=== PATIENT | female | born 1950 | race Caucasian/White ===

== ENCOUNTER 2018-11-19 05:41 | Inpatient (IN) | payer OTHER, BC ==
[2018-11-19] MEDS ORDERED: GABAPENTIN 300 MG CAP PO ONE (05:51)
[2018-11-19] MEDS ORDERED: ACETAMINOPHEN 500 MG TAB PO ONE (05:51)
[2018-11-19] MEDS ORDERED: morphINE SR 15 MG TAB PO ONE (05:51)
[2018-11-19] MEDS ORDERED: LR 1,000 ML IV ONE (05:53)
--- NOTE | 2018-11-19 06:55 | PDHPUP ---
History & Physical Update H&P update statement: This history and physical update is based on an assessment of the patient which was completed after admission or registration (within 24 hours), but prior to the surgery/procedure. H&P update: H&P reviewed & patient examined, no change in patient's condition since H&P completed
[2018-11-19] MEDS ORDERED: VANCOMYCIN 1.5 GM in D5W 250 ML IV ONE (06:56)
[2018-11-19] MEDS ORDERED: ACETAMINOPHEN 325 MG TAB PO PRN (06:57)
[2018-11-19] MEDS ORDERED: ALBUTEROL 60 PUFFS/8 GM MDI IH PRN (06:57)
[2018-11-19] MEDS ORDERED: CLINDAMYCIN 900 MG/DEXTROSE 50 ML IV ONE (07:00)
[2018-11-19] MEDS ORDERED: GENTAMICIN SULFATE 80 MG/2 ML VIAL ONE (07:03)
[2018-11-19] MEDS ORDERED: BUPIVACAINE/EPI 0.25% 30 ML SDV ONE (07:03)
[2018-11-19] MEDS ORDERED: THROMBIN (BOVINE) 20,000 UNIT VIAL TP ONE (07:03)
[2018-11-19] MEDS ORDERED: BACITRACIN 50,000 UNITS/10 ML SYR IRR ONE (07:03)
[2018-11-19] MEDS ORDERED: CHLORHEXIDINE GLUC HIBICLENS 118 ML BTL TP ONE (07:03)
[2018-11-19] MEDS ORDERED: CITRATE DEXTROSE SOLN 500 ML BAG ONE ×2 (07:05→12:13)
--- NOTE | 2018-11-19 07:05 | PDANEPAE ---
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 ASTHMA EXERCISE INDUCED,COLD WEATHER,ENVIRONMENTAL FRANGRANCES - Neurologic History Hx Cerebrovascular Accident: No Hx Seizures: No Hx Dementia: No - Endocrine History Hx Diabetes: No - Renal History Hx Renal Disorders: No - Liver History Hx Hepatic Disorders: No - Neurological & Psychiatric Hx Hx Neurological and Psychiatric Disorders: No - Cancer History Hx Cancer: Yes Cancer History Comment: SKIN - Congenital Disorder History Hx Congenital Disorders: No - GI History Hx Gastrointestinal Disorders: No - Other Health History Other Health History: 12/2017 LEG ULTRASOUND SHOWED HX OF LT LOWER LEG DVT. ANEMIA. KYPHOSIS - Chronic Pain History Chronic Pain: Yes (THORACIC REGION,RT BREAST NUMBNESS) - Surgical History Prior Surgeries: BILATERAL CATARACT 2015. RESECTION OF THORACIC TUMOR WITH RODS 2012. TUBAL LIGATION. TONSILLECTOMY. RT HAND BENIGN TUMOR REMVL. RT BREAST BX ANE Review of Systems Review of Systems: - Exercise capacity METS (RN): 4 METS ANE Patient History - Allergies Allergies/Adverse Reactions: clarithromycin [From Biaxin] Allergy (Verified 11/09/18 11:48) Hives Penicillins Allergy (Verified 11/19/18 06:41) Swelling/neck,face,throat Sulfa (Sulfonamide Antibiotics) Allergy (Verified 11/09/18 11:48) Hives - Home Medications Home Medications: Acetaminophen [Tylenol 325mg (*)] 325 mg PO Q6 PRN 11/09/18 [Last Taken Unknown] Albuterol [Proventil Inhaler HFA (*)] 1 - 2 puffs IH Q4H PRN 11/09/18 [Last Taken 09/20/18] Herbals/Supplements -Info Only 1 ea PO DAILY 11/09/18 [Last Taken 11/12/18] Tiotropium Inhaler [Spiriva Inhaler] 1 inh IH DAILY 11/09/18 [Last Taken ] Aspirin DAILY 11/10/18 [Last Taken 11/12/18] Budesonide PRN 11/10/18 [Last Taken 11/19/18] Iron DAILY 11/10/18 [Last Taken 11/19/18] ZYRTEC PRN 11/10/18 [Last Taken 11/12/18] - NPO status NPO Since - Liquids (Date): 11/19/18 NPO Since - Liquids (Time): 04:00 NPO Since - Solids (Date): 11/18/18 NPO Since - Solids (Time): 18:30 - Smoking Hx Smoking Status: Former smoker ANE Labs/Vital Signs - Vital Signs Blood Pressure: 163/83 Heart Rate: 80 Respiratory Rate: 16 O2 Sat (%): 91 Height: 172.72 cm Weight: 80.286 kg ANE Physical Exam - Airway Neck exam: FROM Mallampati Score: Class 1 Mouth exam: normal dental/mouth exam - Pulmonary Pulmonary: no respiratory distress, no rales or rhonchi - Cardiovascular Cardiovascular: regular rate and rhythym, no murmur, rub, or gallop - ASA Status ASA Status: III ANE Anesthesia Plan Anesthesia Plan: general endotracheal anesthesia Lines/Monitors: arterial line Total IV Anesthesia: Yes
[2018-11-19] MEDS ORDERED: MIDAZOLAM 2 MG/2 ML VIAL IVP ONE (07:06)
[2018-11-19] MEDS ORDERED: PROPOFOL 200 MG/20 ML VIAL ONE (07:10)
[2018-11-19] MEDS ORDERED: REMIFENTANIL HCL 1 MG VIAL ONE ×4 (07:10→13:13)
[2018-11-19] MEDS ORDERED: LIDOCAINE 2% 100 MG/5 ML SYR ONE (07:10)
[2018-11-19] MEDS ORDERED: DEXAMETHASONE 4 MG/ML VIAL ONE (07:10)
[2018-11-19] MEDS ORDERED: PROPOFOL/EMULSION 500 MG/50 ML BOTTLE IV ONE ×8 (07:13→13:13)
[2018-11-19] MEDS ORDERED: DEXMEDETOMIDINE HCL 400 MCG in NS 100 ML IV ONE (07:30)
[2018-11-19] MEDS ORDERED: VANCOMYCIN 1.25 GM in NS 250 ML IV ONE (07:30)
[2018-11-19] MEDS ORDERED: POLYETHYLENE GLYCOL 3350 17 GM PKT PO PRN (11:51)
[2018-11-19] MEDS ORDERED: BISACODYL 10 MG SUPP PR PRN (11:51)
[2018-11-19] MEDS ORDERED: MAGNESIUM HYDROXIDE 30 ML UDCUP PO PRN (11:51)
[2018-11-19] MEDS ORDERED: LACTULOSE 20 GM/30 ML UDCUP PO PRN (11:51)
[2018-11-19] MEDS ORDERED: diphenhydrAMINE 25 MG CAP PO PRN (11:51)
[2018-11-19] MEDS ORDERED: NS 1,000 ML IV SCH (12:30)
--- NOTE | 2018-11-19 12:50 | POSTOPPROG ---
Post Op Note Date of Operation: 11/19/18 Surgeon: Esvin Peña Patient Coordinator: Osiris Valladares PA-C (Mirabella), Joseluis Morales MD Anesthesia: GET(General Endotracheal) Pre-op Diagnosis: Intradural thoracic meningioma, kyphosis of thoracic spine Post-op Diagnosis: same Procedure: Removal of hardware T3-6, extension of fusion T1-T8, Excision of tumor Inf/Abcess present in the surg proc area at time of surgery?: No Depth: Organ Space Complications: None observed Drains: Other (Lumbar Drain) SOAP Progress Note Assessment/Plan: Assessment: Plan: S: Patient in ICU. Still waking up from surgery. Stable with expected incisional pain. O: NAD, VSS PERRL, EOMI Somnolent but arousable and following commands ROBERTS X 4 BLE 5/5 Incision c/d/i dressed LAN X 1 to thumbprint suction ~50 ccs in bulb Lumbar drain in placed- clamped A: 67 yo female sp removal of hardware T3-T6, extension of fusion T1-T8, resection of intradural tumor. Placement of lumbar drain P: -Admit to ICU -optimize pain control- on precedex overnight to help, very sensitive to pain medications! Have tramadol, scheduled tylenol, oxycodone and robaxin to help -Bedrest overnight, but HOB may be up to 30 degrees -Tomorrow may get out of bed as long as LD is clamped! -Lumbar Drain- Clamped at ALL times except to drain 10ccs and hour at the top of every hour starting at 1600 -PT.OT to start tomorros -Postop MRI in am -Postop xrays when able -SBP goal normotensive -Neuro checks -Lan Drain to thumbprint suction only -DVT: TEDs, SCDs, Lovenox to start in am -Seen by Dr. Morales postop 11/19/18 15:49 Objective: Vital Signs Temp Pulse Resp BP Pulse Ox 37.1 C 80 16 163/83 H 91 L 11/19/18 06:13 11/19/18 07:05 11/19/18 07:05 11/19/18 07:05 11/19/18 07:05
[2018-11-19] MEDS ORDERED: CETIRIZINE 10 MG TAB PO PRN (13:07)
[2018-11-19] MEDS ORDERED: HYDROmorphONE/DILAUDID 2 MG/ML INJ ONE (14:09)
[2018-11-19] MEDS ORDERED: NALOXONE HCL 0.4 MG/ML INJ IVP PRN (14:49)
--- NOTE | 2018-11-19 15:45 | POSTANESTH ---
Post Anesthetic Evaluation Cardiovascular Status: Normal, Stable Respiratory Status: Normal, Stable Level of Consciousness/Mental Status: Can Participate in Eval, Moderately Sleepy Pain Control: Adequate, Prn Tx Ordered Nausea/Vomiting Control: Adequate, Prn Tx Ordered Complications Possibly Related to Anesthesia: None Noted
--- NOTE | 2018-11-19 16:03 | PDMN ---
Medical Necessity Medical necessity: [facility] IP only surgery; cpt 81757 Removal of T3-6 Hardware, Extension of T1-8 Fusion, Excision of Tumor
[2018-11-19] MEDS: ONDANSETRON 4 MG/2 ML VIAL IVP PRN ×2 (16:19→19:16)
[2018-11-19] MEDS: ACETAMINOPHEN 500 MG TAB PO SCH ×2 (18:20→22:33)
[2018-11-19] MEDS: METHOCARBAMOL 750 MG TAB PO PRN ×2 (18:20→23:33)
--- NOTE | 2018-11-19 18:39 | GOP ---
[f rep st] OPERATIVE REPORT DATE OF OPERATION: 11/19/2018 SURGEON: Esvin Peña MD WAREHOUSEMAN: 1. Severo Morales MD. 2. Osiris Valladares PA-C (Mirabella). ANESTHESIA: General endotracheal. 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 POSTOPERATIVE DIAGNOSIS: Recurrent dural-based extramedullary tumor. PROCEDURE PERFORMED: 1. Exploration of spinal fusion. 2. Removal of existing spinal hardware, T3-T6. 3. Placement of pedicle screw fixation, T1-T8. 4. Posterolateral spinal fusion T1-T8. 5. Use of O-arm/Stealth stereotactic navigation for screw placement. 6. Redo resection of dural-based extramedullary tumor with resection of dura. 7. Bovine pericardium duraplasty. 8. Use of the operative microscope. 9. [place] of local autograft. 10. Use of allograft cancellous bone chips. 11. Intraoperative neurophysiologic monitoring, including somatosensory-evoked potentials and motor-evoked potentials. 12. Placement of lumbar drain. 13. Complex dural repair using bovine pericardium allograft FINDINGS: A successful tumor resection and successful spinal fusion T1-T8. SPECIMENS: Right thoracic dural-based tumor for permanent pathology. ESTIMATED BLOOD LOSS: 300 mL. DESCRIPTION OF PROCEDURE: After informed consent was obtained from the patient , the patient was brought to the operating room and a formal time-out was performed, identifying the patient by name, medical record number, and date of . Preoperative antibiotics were given. The endotracheal tube was placed and general endotracheal anesthesia was smoothly induced. The patient was turned to the prone position on the Kishan table and all appropriate pressure points were padded and checked. All appropriate leads were placed for intraoperative neurophysiologic monitoring and baseline potentials were obtained , which were normal. Her previous incision was then marked and the thoracic region was prepped and draped in the normal sterile fashion. The skin incision was opened using a 10 blade, and the subcutaneous tissues were dissected using monopolar electrocautery. The inferior spinous processes of T7 and T8 were identified and the paraspinous muscles were taken down laterally. This allowed us to expose the old hardware, which was exposed widely laterally to the transverse processes. We carried this up cephalad where she had developed some kyphosis, exposing the lamina and transverse processes of T1 and T2. Once this exposure was obtained, the old Globus hardware was removed and the screw sizes were recorded. Once all this hardware was removed, the stereotactic frame was placed on the spinous process of T7 and a stereotactic spin was obtained showing the relevant anatomy from T1-T8. This allowed us to localize the pedicle entry points at T1, T2, T7 and T8, which were the virgin levels. These entry points were then decorticated using the high-speed drill and the pedicles were then tapped using navigation using a 4 mm Medtronic tap. The pedicle trajectories were slightly changed at T3, T4, T5 and T6 as well, and the screws were deepened into the vertebral body. Once all of these holes were obtained, the 5.5 mm Medtronic Solera system was used to place pedicle screws at each level in the following manner. At T1, 5.5 x 30 mm screws were placed bilaterally. At T2, 5.5 x 35 mm screw was placed on the left, and a 5.5 x 30 mm screw was placed on the right. At T3, 5.5 x 35 mm screws were placed bilaterally. At T4, a 5.5 x 40 mm screw was placed on the left and no screw was placed on the right. At T5, 5.5 x 35 mm screw was placed on the left and no screw was placed on the right. The 2 pedicles at T4 and T5 were then later removed for the transpedicular approach for the tumor removal. At T6, 5.5 x 45 mm screws were placed bilaterally. At T7, a 5.0 x 45 mm screw was placed on the left and a 5 x 40 mm screw was placed on the right. At T8, 5.5 x 40 mm screws were placed bilaterally. Once all the screws were placed, the somatosensory and motor-evoked potentials remained completely stable. At this point, the lamina of T8 was carefully identified and there was a lot of scar tissue over the dura. The high-speed drill was used to drill a laminectomy at T8, exposing the dural edge. This was then used under the high-power magnification of the operative microscope to carefully dissect the scar tissue away from the dura going cephalad. In the area of the T4 and T5 pedicles on the right, the tumor was seen extending through the dura and somewhat into the foramen. These foramen were unroofed using the high-speed drill, and the pedicles of T4 and T5 were completely removed using the high-speed drill for transpedicular approach. The nerve roots had already been sacrificed it appeared in the foramen at T4-5 and T5-6. Some tumor was resected from this area. Once we had a good dural exposure, the dura was then opened just to the left of the area where the tumor was located in a longitudinal fashion, and dural tack-up stitches were placed. The arachnoid was carefully dissected away from the edge of the tumor into the magnification of the microscope, and the tumor was luckily not involving the spinal cord at all, however, it was deviating toward the left. The tumor was extending through the dura and was extremely calcified. A large calcified portion of the tumor was able to be removed en bloc and the softer, more ventral portion of the tumor was carefully removed using suction and bipolar electrocautery. Unfortunately because of the extent of the tumor extending to the dura, the nerve root at T5 was then sacrificed intradurally and the dura on the right side of the canal had to be completely resected with the tumor. As we coursed ventrally, we were able to identify the dural edge, and there was likely still a small amount of tumor ventral to the spinal cord which could not be visualized. However, it was well decompressed. At this point, the edges were inspected and it did not appear that we could resect any further tumor, but the cord was extremely well decompressed and we could not remove any further dura and still get a reasonable repair. The wound was copiously irrigated using sterile saline. I then fashioned a patch graft with bovine pericardium and this was carefully sutured to the ventral dura from within the intradural space. A running 6-0 Prolene suture was used to secure this ventrally. The sutures then run up the sides of the dura allowing us to then close the remaining dura in a watertight fashion in the midline. This allowed for a relatively wide duraplasty. No leakage of CSF was visualized at this point, and we appeared to have a good dural repair. Due to the scarring and extensive dural involvement of the tumor , the tumor resection and dural repair was quite tedious and took about twice as long as would be expected. At this point, the wound was copiously irrigated using bacitracin irrigation. We then fashioned a 5.5 mm cobalt chromium rods with some kyphosis, but enough that we could straighten out her spine to a reasonable degree. These were cut to length and then placed into the screw heads with some reduction of the kyphosis, secured in place using the locking caps. We appeared to have good reduction here. A second O-arm spin was obtained showing the screws all in good placement. The hardware all appeared to be well intact. At this point, the transverse processes and lamina were completely decorticated using the high-speed drill. Cancellous bone chips and Progenix Plus demineralized bone matrix were then used for posterolateral fusion after it was mixed with the locally-harvested autograft from the laminectomy and the fused spinous processes which were still existing. The motor-evoked and somatosensory-evoked potentials remained completely stable at this point. After posterolateral fusion was performed, the wound was copiously irrigated using bacitracin irrigation. A small layer of DuraSeal was placed over the dural repair to avoid any postoperative CSF leak. All bleeding was controlled using bipolar electrocautery. The fascia was then closed in a watertight fashion over the drain. Again, the wound was copiously irrigated using bacitracin irrigation. The deep dermis was closed using interrupted 2-0 Vicryl. The skin was closed using a running 3-0 nylon. After sterile dressings were placed, a 14-gauge Touhy needle was then used to place a lumbar drain at the L3-L4 interspace using palpable landmarks. Good CSF flow was obtained and the drain was easily passed. It was patent at the time of closure , and this drain was sterilely dressed as well. The patient then awakened in the operating room where she was extubated and transferred to the PACU in stable condition. All sponge and needle counts were correct at the end of the case. BRIEF CLINICAL HISTORY: Megan Gonzalez is a 67-year-old woman who has had a history of a previous resection of a primarily right-sided dural-based mass 4 or 5 years ago. Apparently, the pathology from this returned as meningioma, but her operating physician told her that they felt that this was a schwannoma. She has been followed somewhat since that time, and at the time of surgery, underwent a T3-T6 instrumented fusion. But in her followup, she was found to have tumor recurrence and some growth. There was displacement of the cord toward the left side, although she was not symptomatic with overt cord compression. This case was presented at our Multidisciplinary Tumor Board Conference, and ultimately it was decided that she should undergo redo resection to establish the final pathology and decompress the spinal cord. She presents electively today for this procedure. FLUIDS AND URINE OUTPUT: Put the anesthesia record. All neurophysiologic monitoring remained stable throughout the case without change. DRAINS: Subfascial MELANY and an intradural lumbar subarachnoid drain. COMPLICATIONS: None. /[id number]/MODL MTDD
[2018-11-19] MEDS: oxyCODONE IR 5 MG TAB PO PRN ×2 (19:15→23:33)
[2018-11-19] MEDS ORDERED: VANCOMYCIN 750 MG in D5W 150 ML IV ONE (19:30)
[2018-11-19] MEDS: FAMOTIDINE 20 MG TAB PO SCH (22:33)
[2018-11-19] MEDS: SENNOSIDES/DOCUSATE SODIUM TAB PO SCH (22:33)
[2018-11-19] MEDS: DEXMEDETOMIDINE HCL 400 MCG in NS 100 ML IV SCH (23:35)
[2018-11-20] MEDS: ACETAMINOPHEN 500 MG TAB PO SCH ×3 (06:14→22:09)
[2018-11-20] MEDS: METHOCARBAMOL 750 MG TAB PO PRN ×3 (06:16→16:27)
--- NOTE | 2018-11-20 07:18 | PDCONSULT ---
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
[2018-11-20] MEDS: SENNOSIDES/DOCUSATE SODIUM TAB PO SCH ×2 (08:29→22:10)
[2018-11-20] MEDS: FAMOTIDINE 20 MG TAB PO SCH ×2 (08:29→22:10)
[2018-11-20] MEDS: oxyCODONE IR 5 MG TAB PO PRN ×2 (08:29→16:27)
[2018-11-20] MEDS: CHOLECALCIFEROL VIT D3 1,000 UNITS TAB PO SCH (08:29)
[2018-11-20] MEDS: MULTIVITAMINS 1 EACH TAB PO SCH (08:30)
[2018-11-20] MEDS: FERROUS SULFATE 325 MG TAB PO SCH (08:30)
[2018-11-20] MEDS: ENOXAPARIN 40 MG/0.4 ML SYR SC SCH (08:30)
[2018-11-20] MEDS: TIOTROPIUM INHALER 18 MCG/DOSE 5 DOSE/MDI IH SCH (09:12)
[2018-11-20] MEDS ORDERED: NS 1,000 ML IV ONE (09:30)
[2018-11-20] MEDS: traMADol 50 MG TAB PO PRN (11:57)
--- NOTE | 2018-11-20 13:52 | ASMTCASEMG ---
Living Arrangements What is your living Answers: With Spouse arrangement? Who do you live with? Type Of Residence What kind of residence do Answers: House you live in? Discharge Plan Comments Coordination Status Comments Notes: Patient is a 67yo female who presents for surgery due to a reoccurrence of a tumor. Patient going to surgery today for redo resection of intradural thoracic tumor, extension of fusion T1-T8. PT/OT evals ordered for the patient. D/C plan TBD. CM will follow. Date Signed: 11/20/2018 01:51 PM Electronically Signed By:Myrna Jay LCSW
[2018-11-20] MEDS: ONDANSETRON 4 MG/2 ML VIAL IVP PRN (16:27)
[2018-11-21] MEDS: METHOCARBAMOL 750 MG TAB PO PRN ×4 (00:20→18:21)
[2018-11-21] MEDS: DEXMEDETOMIDINE HCL 400 MCG in NS 100 ML IV SCH ×2 (00:43→17:01)
[2018-11-21] MEDS: oxyCODONE IR 5 MG TAB PO PRN ×3 (03:19→18:21)
[2018-11-21] MEDS: ACETAMINOPHEN 500 MG TAB PO SCH ×3 (05:31→21:04)
[2018-11-21] MEDS: TIOTROPIUM INHALER 18 MCG/DOSE 5 DOSE/MDI IH SCH (08:49)
[2018-11-21] MEDS: MULTIVITAMINS 1 EACH TAB PO SCH (09:52)
[2018-11-21] MEDS: ENOXAPARIN 40 MG/0.4 ML SYR SC SCH (09:52)
[2018-11-21] MEDS: FAMOTIDINE 20 MG TAB PO SCH ×2 (09:52→20:04)
[2018-11-21] MEDS: SENNOSIDES/DOCUSATE SODIUM TAB PO SCH ×2 (09:52→20:04)
[2018-11-21] MEDS: FERROUS SULFATE 325 MG TAB PO SCH (09:52)
[2018-11-21] MEDS: CHOLECALCIFEROL VIT D3 1,000 UNITS TAB PO SCH (09:52)
--- NOTE | 2018-11-21 10:31 | PDCONSULT ---
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: NEUROSURGERY STAFF no new events, pain worse today, precedex weaned off but now recently restarted AAOx3 Strength full 5/5 at HF, KF/E, PF/DF sensation normal dressings c/d/i left index finger now with normal cap refill, warm (had been showing signs of ischemia after a-line removal) POD#2 s/p redo resection of thoracic meningioma, extensive dural repair, T1-8 instrumented fusion - doing well - continue drain 10cc/hr from lumbar drain (likely clamp on Friday) - ambulate - pain control, she is very sensitive to narcotics - thoracic xrays when able - PT/OT - lovenox for DVT ppx - will hold off on MRI imaging for now, can get as outpatient Casey
[2018-11-21] MEDS: ONDANSETRON DISINTEGRATING 4 MG TAB PO PRN (20:04)
[2018-11-22] MEDS: oxyCODONE IR 5 MG TAB PO PRN ×2 (00:16→08:25)
[2018-11-22] MEDS: METHOCARBAMOL 750 MG TAB PO PRN ×3 (00:16→22:44)
[2018-11-22] MEDS: ACETAMINOPHEN 500 MG TAB PO SCH ×3 (05:54→22:44)
--- NOTE | 2018-11-22 08:05 | NEUSURGPN ---
Assessment/Plan: Assessment: Plan: S: Patient in ICU. Still waking up from surgery. Stable with expected incisional pain. O: AAOx3 Strength full 5/5 at HF, KF/E, PF/DF sensation normal dressings c/d/i left index finger now with normal cap refill, warm (had been showing signs of ischemia after a-line removal) MELANY X 1- serosang in bulb ~10ccs Lumbar drain in placed- clamped A: 67 yo female sp removal of hardware T3-T6, extension of fusion T1-T8, resection of intradural tumor. Placement of lumbar drain P: POD#3 s/p redo resection of thoracic meningioma, extensive dural repair, T1-8 instrumented fusion - doing well overall. Still trying to get to an oral only pain control regimen. Spoke with patient about taking orals first and then only if needed we have IV available. Still on a tiny bit of Precedex as well. - continue drain 10cc/hr from lumbar drain- will clamp tomorrow and if wound remains dry will remove on Friday. Will need lovenox held prior to drain removal - ambulate - pain control, she is very sensitive to narcotics - thoracic xrays when able - PT/OT - lovenox for DVT ppx - will hold off on MRI imaging for now, can get as outpatient -Can remove MELANY drain today -Discussed with Dr. Peña Catheter Insertion Date: 11/19/18 - Physician Discussed Patient with Dr.: Peña Neurosurgery Physical Exam - Vitals, I&O, Labs I and O 11/21/18 11/22/18 11/23/18 05:59 05:59 05:59 Intake Total 5505 2825 Output Total 1590 2502 10 Balance 3915 323 -10 Intake: Oral (ml) 2200 1650 IV Intake (ml) 1052 IV Infused (ml) 3305 123 Dexmedetomidine HCl 400 14 mcg In Ns 100 ml @ Per Protocol IV ONCALL ONE Rx #:[id number] Dexmedetomidine HCl 400 88 123 mcg In Ns 100 ml @ Titrate IV CONT MARYURI Rx#: [id number] Ns 1,000 ml @ 100 mls/hr 3203 IV CONT MARYURI Rx#: [id number] Output: Urine (ml) 970 2050 Bedside Commode 650 1450 Catheter 120 Incontinence 200 600 CSF Drainage Amount 230 232 10 Lumbar Drain 230 232 10 MELANY Drain Output (ml) 390 220 #1 Back Kishan Sofia 390 220 Other: Intake Quantity Yes Yes Sufficient Number of Voids Bedside Commode 3 1 Incontinence 1 Number of Stools Bedside Commode 0 Vital Signs Temp Pulse Resp BP Pulse Ox 36.9 C 60 20 123/52 H 97 11/22/18 04:00 11/22/18 07:00 11/22/18 07:00 11/22/18 07:00 11/22/18 07:00 Laboratory Results 11/19/18 16:30 ICD10 Worksheet Patient Problems: Problems Problem Status Onset Benign tumor of spinal meningioma Acute - ICD10 Problem Qualifiers (1) Benign tumor of spinal meningioma
[2018-11-22] MEDS: ENOXAPARIN 40 MG/0.4 ML SYR SC SCH (08:27)
[2018-11-22] MEDS: MULTIVITAMINS 1 EACH TAB PO SCH (08:27)
[2018-11-22] MEDS: SENNOSIDES/DOCUSATE SODIUM TAB PO SCH ×2 (08:27→20:45)
[2018-11-22] MEDS: FERROUS SULFATE 325 MG TAB PO SCH (08:27)
[2018-11-22] MEDS: FAMOTIDINE 20 MG TAB PO SCH ×2 (08:27→20:45)
[2018-11-22] MEDS: CHOLECALCIFEROL VIT D3 1,000 UNITS TAB PO SCH (08:27)
[2018-11-22] MEDS: ONDANSETRON 4 MG/2 ML VIAL IVP PRN ×2 (11:18→17:12)
[2018-11-22] MEDS: TIOTROPIUM INHALER 18 MCG/DOSE 5 DOSE/MDI IH SCH (11:23)
[2018-11-22] MEDS: traMADol 50 MG TAB PO PRN (12:47)
[2018-11-22] MEDS: DEXMEDETOMIDINE HCL 400 MCG in NS 100 ML IV SCH (14:01)
--- NOTE | 2018-11-22 14:05 | ASMTCMCOM ---
CM Note CM Note Notes: Pt had spinal tumor resection and fusion on 11/19/18 and has worked with therapies who are recommending [facility]. Surgeon will need to place order for [facility] eval. CM left message for [facility] intake. CM to follow. D/C plan: [facility] pending eval Date Signed: 11/22/2018 02:04 PM Electronically Signed By:Aislinn Rodriguez
[2018-11-22] MEDS ORDERED: PROMETHAZINE HCL 25 MG/ML INJ IVP PRN (18:37)
[2018-11-22] MEDS: PROMETHAZINE HCL 25 MG/ML INJ IVP PRN (20:41)
[2018-11-23] MEDS: ACETAMINOPHEN 500 MG TAB PO SCH ×3 (02:14→22:43)
[2018-11-23] MEDS: oxyCODONE IR 5 MG TAB PO PRN ×3 (05:05→22:43)
[2018-11-23] MEDS: DEXMEDETOMIDINE HCL 400 MCG in NS 100 ML IV SCH ×2 (06:42→23:15)
--- NOTE | 2018-11-23 07:32 | NEUSURGPN ---
Assessment/Plan: Assessment: Plan: S: Had a lot of nausea yesterday with 1 episode of vomiting. Improved this morning with phenergan. Pain control ok on oral medications. O: AAOx3 Strength full 5/5 at HF, KF/E, PF/DF sensation normal dressings c/d/i left index finger now with normal cap refill, warm (had been showing signs of ischemia after a-line removal) MELANY removed Incision c/d/i Lumbar drain in placed- clamped A: 67 yo female POD#4 sp removal of hardware T3-T6, extension of fusion T1-T8, resection of intradural tumor. Placement of lumbar drain P: - doing well overall.Still trying to get pain and nausea under control. -Clamp lumbar Drain today -Ok to ambulate without tele monitors in place - Hold lovenox after this mornings dose in anticipation of lumbar drain pull tomorrow - ambulate - pain control, she is very sensitive to narcotics - thoracic xrays when able - PT/OT -No BM yet- Miralax today - lovenox for DVT ppx- can have this morning, hold tomorrow's dose -Redress incision and monitor for any signs of CSF leak - will hold off on MRI imaging for now, can get as outpatient -Discussed with Dr. Peña Catheter Insertion Date: 11/19/18 - Physician Discussed Patient with : Casey Patient Seen by : Casey Neurosurgery Physical Exam - Vitals, I&O, Labs I and O 11/22/18 11/23/18 11/24/18 05:59 05:59 05:59 Intake Total 2825 3181.4 Output Total 2502 2050 20 Balance 323 1131.4 -20 Intake: Oral (ml) 1650 2500 IV Intake (ml) 1052 443 IV Infused (ml) 123 238.4 Dexmedetomidine HCl 400 123 238.4 mcg In Ns 100 ml @ Titrate IV CONT MARYURI Rx#: [id number] Output: Urine (ml) 2050 1800 Bedside Commode 1450 1200 Incontinence 600 600 CSF Drainage Amount 232 220 20 Lumbar Drain 232 220 20 MELANY Drain Output (ml) 220 30 #1 Back Kishan Sofia 220 30 Other: Intake Quantity Yes Yes Sufficient Output Comment Incontinence external female cath Number of Voids Bedside Commode 1 3 Incontinence 1 1 Number of Stools Bedside Commode 0 Number of Emesis 1 Occurrences Vital Signs Temp Pulse Resp BP Pulse Ox 37.0 C 60 7 L 123/51 H 100 11/23/18 02:00 11/23/18 07:00 11/23/18 07:00 11/23/18 07:00 11/23/18 07:00 Laboratory Results 11/19/18 16:30 ICD10 Worksheet Patient Problems: Problems Problem Status Onset Benign tumor of spinal meningioma Acute - ICD10 Problem Qualifiers (1) Benign tumor of spinal meningioma
[2018-11-23] MEDS: METHOCARBAMOL 750 MG TAB PO PRN ×2 (08:50→12:58)
[2018-11-23] MEDS: ENOXAPARIN 40 MG/0.4 ML SYR SC SCH (08:51)
[2018-11-23] MEDS: SENNOSIDES/DOCUSATE SODIUM TAB PO SCH ×2 (09:41→20:44)
[2018-11-23] MEDS: CHOLECALCIFEROL VIT D3 1,000 UNITS TAB PO SCH (09:43)
[2018-11-23] MEDS: FAMOTIDINE 20 MG TAB PO SCH ×2 (09:43→20:44)
[2018-11-23] MEDS: FERROUS SULFATE 325 MG TAB PO SCH (09:44)
[2018-11-23] MEDS: MULTIVITAMINS 1 EACH TAB PO SCH (09:44)
[2018-11-23] MEDS ORDERED: ALBUMIN 5% 500 ML IV ONE (10:39)
[2018-11-23] MEDS ORDERED: NS W/ 20 KCl/L 1,000 ML IV SCH (10:45)
[2018-11-23] MEDS: TIOTROPIUM INHALER 18 MCG/DOSE 5 DOSE/MDI IH SCH (10:57)
--- NOTE | 2018-11-23 12:00 | ASMTCMCOM ---
CM Note CM Note Notes: Spoke with pt and who are interested in [facility] inpt rehab. CM spoke with [facility] Inpt rehab who are willing to accept pt if she is ready in the next few day. Pt and her are very interested in keeping pt here at [facility] and don't want to consider other options at this time. CM to follow. Plan: [facility] Inpatient Rehab Once medically ready. Date Signed: 11/23/2018 11:59 AM Electronically Signed By:ELIZABETH Gao
[2018-11-23 12:29] LABS: PLATELET COUNT 179 10^3/uL (150-400)
[2018-11-23] MEDS ORDERED: METHYLNALTREXONE BROMIDE 12 MG/0.6 ML INJ SC ONE (18:45)
[2018-11-23] MEDS: ONDANSETRON 4 MG/2 ML VIAL IVP PRN (19:04)
[2018-11-23] MEDS: METOCLOPRAMIDE 10 MG/2 ML VIAL IVP PRN (19:04)
[2018-11-23] MEDS: PROMETHAZINE HCL 25 MG/ML INJ IVP PRN (22:42)
[2018-11-24] MEDS: METOCLOPRAMIDE 10 MG/2 ML VIAL IVP PRN (04:34)
[2018-11-24] MEDS: METHOCARBAMOL 750 MG TAB PO PRN ×2 (04:34→11:42)
[2018-11-24] MEDS: ACETAMINOPHEN 500 MG TAB PO SCH ×3 (06:00→21:54)
--- NOTE | 2018-11-24 07:40 | NEUSURGPN ---
Date of Surgery: 11/19/18 Post Op Day: 5 Assessment/Plan: Assessment: 67 yo female POD#5 sp removal of hardware T3-T6, extension of fusion T1-T8, resection of intradural tumor. Placement of lumbar drain Plan: - doing well overall.Still trying to get pain and nausea under control. -Lumbar drain removed, tip intact. Nylon suture in place, no drainage noted. Will keep flat x1 hour (0830), then ok to ambulate. -May restart Lovenox - pain control, she is very sensitive to narcotics - thoracic xrays today - PT/OT -No BM yet-continue bowel protocol -Redress incision, will continue to monitor - will hold off on MRI imaging for now, can get as outpatient Patient was seen by Dr Peña and Dr Morales as well this am Subjective: resting in bed, no new complaints Objective: AxOx4 MAEx4 5/5 BUE, BLE Sensation intact to light touch BLE Dressing/Incision CDI Lumbar drain site with suture x1-no drainage Neuro Check Frequency: per routine Urinary Catheter in Place: No Catheter Insertion Date: 11/19/18 - Physician Patient Seen by Dr.: Peña (Also seen by Dr Morales) Neurosurgery Physical Exam - Vitals, I&O, Labs I and O 11/23/18 11/24/18 11/25/18 05:59 05:59 05:59 Intake Total 3181.4 3179.8 Output Total 2050 1320 Balance 1131.4 1859.8 Intake: Oral (ml) 2500 1725 IV Intake (ml) 443 IV Infused (ml) 238.4 1454.8 Albumin 5% 500 ml @ As 500 Directed IV ONCE ONE Rx#: [id number] Dexmedetomidine HCl 400 238.4 93.8 mcg In Ns 100 ml @ Titrate IV CONT MARYURI Rx#: [id number] NS W/ 20 KCl/L 1,000 ml @ 861 100 mls/hr IV CONT MARYURI Rx#:[id number] Output: Urine (ml) 1800 1150 Bedside Commode 1200 1150 Incontinence 600 Emesis (ml) 150 CSF Drainage Amount 220 20 Lumbar Drain 220 20 MELANY Drain Output (ml) 30 #1 Back Kishan Sofia 30 Other: Intake Quantity Yes Yes Sufficient Output Comment Incontinence external female cath Number of Voids Bedside Commode 3 1 Incontinence 1 Number of Stools Bedside Commode 1 Number of Emesis 1 Occurrences Vital Signs Temp Pulse Resp BP Pulse Ox 37.4 C 61 14 136/57 H 99 11/23/18 20:00 11/24/18 06:00 11/24/18 06:00 11/24/18 06:00 11/24/18 06:00 Laboratory Results 11/23/18 12:18 11/23/18 12:18 ICD10 Worksheet Patient Problems: Problems Problem Status Onset Benign tumor of spinal meningioma Acute
[2018-11-24] MEDS: FAMOTIDINE 20 MG TAB PO SCH ×2 (09:57→20:26)
[2018-11-24] MEDS: SENNOSIDES/DOCUSATE SODIUM TAB PO SCH ×2 (09:57→20:26)
[2018-11-24] MEDS: MULTIVITAMINS 1 EACH TAB PO SCH (09:58)
[2018-11-24] MEDS: FERROUS SULFATE 325 MG TAB PO SCH (09:58)
[2018-11-24] MEDS: CHOLECALCIFEROL VIT D3 1,000 UNITS TAB PO SCH (09:58)
[2018-11-24] MEDS: traMADol 50 MG TAB PO PRN ×2 (10:18→18:29)
[2018-11-24] MEDS: TIOTROPIUM INHALER 18 MCG/DOSE 5 DOSE/MDI IH SCH (11:19)
[2018-11-24] MEDS: hydrALAZINE 20 MG/ML VIAL IVP PRN (11:41)
[2018-11-24] MEDS: ONDANSETRON 4 MG/2 ML VIAL IVP PRN (15:00)
[2018-11-24] MEDS: ONDANSETRON DISINTEGRATING 4 MG TAB PO PRN (21:54)
[2018-11-25] MEDS: traMADol 50 MG TAB PO PRN ×2 (01:59→08:25)
[2018-11-25] MEDS: ACETAMINOPHEN 500 MG TAB PO SCH ×3 (05:39→21:44)
[2018-11-25] MEDS: hydrALAZINE 20 MG/ML VIAL IVP PRN (06:43)
--- NOTE | 2018-11-25 07:45 | NEUSURGPN ---
Date of Surgery: 11/19/18 Post Op Day: 6 Assessment/Plan: Assessment: 67 yo female POD #6 s/p removal of hardware T3-T6, extension of fusion T1-T8, resection of intradural tumor. Placement of lumbar drain Plan: -doing well overall. Still trying to get pain and nausea under control-better today -Lumbar drain removed yesterday -ok for Lovenox -pain control, she is very sensitive to narcotics-on tramadol -thoracic xrays pending today -PT/OT-CPM -No BM yet-continue bowel protocol-passing gas -CDI -d/w Dr Peña -call with any questions or concerns Subjective: Awake and alert. NAD. Eating/drinking and voiding. No f/c/n/v/d. Objective: AAO x 4 ROBERTS x 4 5/5 BUE, BLE = Sensation intact to light touch BLE Dressing/Incision CDI Lumbar drain site with suture x1-no drainage Neuro Check Frequency: per routine Urinary Catheter in Place: No Catheter Insertion Date: 11/19/18 - Physician Discussed Patient with Dr.: Peña Neurosurgery Physical Exam - Vitals, I&O, Labs I and O 11/24/18 11/25/18 11/26/18 05:59 05:59 05:59 Intake Total 3179.8 800 Output Total 1320 3300 Balance 1859.8 -2500 Intake: Oral (ml) 1725 800 IV Infused (ml) 1454.8 Albumin 5% 500 ml @ As 500 Directed IV ONCE ONE Rx#: [id number] Dexmedetomidine HCl 400 93.8 mcg In Ns 100 ml @ Titrate IV CONT MARYURI Rx#: [id number] NS W/ 20 KCl/L 1,000 ml @ 861 100 mls/hr IV CONT MARYURI Rx#:[id number] Output: Urine (ml) 1150 3300 Bedside Commode 1150 3300 Emesis (ml) 150 CSF Drainage Amount 20 Lumbar Drain 20 Other: Intake Quantity Yes Sufficient Number of Voids Bedside Commode 1 1 Number of Stools Bedside Commode 1 Number of Emesis 3 Occurrences Vital Signs Temp Pulse Resp BP Pulse Ox 36.8 C 81 16 175/81 H 95 11/25/18 00:00 11/25/18 00:00 11/25/18 00:00 11/25/18 06:45 05/15/19 00:00 Laboratory Results 11/23/18 12:18 11/23/18 12:18 ICD10 Worksheet Patient Problems: Problems Problem Status Onset Benign tumor of spinal meningioma Acute
[2018-11-25] MEDS ORDERED: SCOPOLAMINE HYDROBROMIDE 1 MG/3 DAYS PATCH TD SCH (08:00)
[2018-11-25] MEDS: SENNOSIDES/DOCUSATE SODIUM TAB PO SCH ×2 (08:13→20:35)
[2018-11-25] MEDS: FAMOTIDINE 20 MG TAB PO SCH ×2 (08:25→20:36)
[2018-11-25] MEDS: CHOLECALCIFEROL VIT D3 1,000 UNITS TAB PO SCH (08:25)
[2018-11-25] MEDS: FERROUS SULFATE 325 MG TAB PO SCH (08:25)
[2018-11-25] MEDS: MULTIVITAMINS 1 EACH TAB PO SCH (08:25)
[2018-11-25] MEDS: TIOTROPIUM INHALER 18 MCG/DOSE 5 DOSE/MDI IH SCH (08:33)
--- NOTE | 2018-11-25 14:52 | ASMTCMCOM ---
CM Note CM Note Notes: Pt no longer meets criteria for [facility] inpatient rehab. Pt and [place] are not disapointed, they are very encouraged by pt progress and feel safe with d/c home with [facility]. [facility] can accept pt for PT/OT. Pt will d/c to her home, address/phone verified. Pt has a lot of family support. D/c plan of care: Home with [facility] OT/PT Date Signed: 11/25/2018 02:51 PM Electronically Signed By:KRISTOPHER Lyon
[2018-11-25] MEDS ORDERED: DILTIAZEM 25 MG/5 ML VIAL IVP ONE (17:55)
[2018-11-25] MEDS ORDERED: PROTOCOL POTASSIUM 1 DOSE MISC PRN (18:49)
[2018-11-25] MEDS ORDERED: POTASSIUM CL 20 MEQ PKT PO ONE (18:50)
--- NOTE | 2018-11-25 18:59 | PDHOSCONS ---
<Mirna España - Last Filed: 11/25/18 19:24> History and Physical - Chief Complaint New onset of atrial fibrillation - History of Present Illness Hospital medicine has been asked to consult on Mrs. Gonzalez who is a 67 y/o female s/p POD #6 removal of hardware T3-T6, ext fusion of T1-T8 and resection of intradural tumor. Hx of asthma and brain meningioma and tumor of the thoracic spine dx'ed in 2013. Hospital medicine asked to consult d/t new onset of atrial fibrillation. Episode lasted approximately 30 minutes. She was upright and taking a shower when she felt lightheaded and dizzy, felt like she would have a syncopal event and felt palpitations. She was guided back into bed where HR would bounce between 130-150s. I was at bedside w/RN, pt, and at a time where she stabilized remaining tachy 95-110s, EKG showing few PVCs but SR, BP stable and asymptomatic. No cardiac hx. Denies CP, palpitations, SOB, vomiting, NOEL. She is being transferred to PCU for closer monitoring. History Information - Allergies/Home Medication List Allergies/Adverse Reactions: clarithromycin [From Biaxin] Allergy (Verified 11/09/18 11:48) Hives Penicillins Allergy (Verified 11/19/18 06:41) Swelling/neck,face,throat Sulfa (Sulfonamide Antibiotics) Allergy (Verified 11/09/18 11:48) Hives Home Medications: Acetaminophen [Tylenol 325mg (*)] 325 mg PO Q6 PRN 11/09/18 [Last Taken Unknown] Albuterol [Proventil Inhaler HFA (*)] 1 - 2 puffs IH Q4H PRN 11/09/18 [Last Taken 09/20/18] Herbals/Supplements -Info Only 1 ea PO DAILY 11/09/18 [Last Taken 11/12/18] Tiotropium Inhaler [Spiriva Inhaler] 1 inh IH DAILY 11/09/18 [Last Taken ] Aspirin [Aspirin 81mg (*)] 81 mg PO DAILY 11/10/18 [Last Taken 11/12/18] Cetirizine [ZyrTEC 10 mg (*)] 10 mg PO DAILY PRN 11/10/18 [Last Taken 11/12/18] Ferrous Sulfate [Ferrous Sulf 325 MG (*)] 325 mg PO DAILY 11/10/18 [Last Taken 11/19/18] Cholecalciferol Vit D3 [Vitamin D3 (*)] 1,000 units PO DAILY 11/19/18 [Last Taken Unknown] Multivitamins [Multivitamin (*)] 1 each PO DAILY 11/19/18 [Last Taken Unknown] I have personally reviewed and updated: family history, medical history, social history, surgical history - Past Medical History asthma Additional medical history: see HPI - Surgical History Reports: spinal surgery - Family History Positive for: non-pertinent - Social History Smoking Status: Former smoker Alcohol Use: Rarely Drug Use: None Additional social history: . Review of Systems Review of Systems: ROS: 10pt was reviewed & negative except for what was stated in HPI & below Physical Exam Physical Exam: Lab data and imaging were reviewed. EKG: Few PVCs, NSR Trop: 0.022 Ma.8 CK-MB: 0.77 K: 3.1 Temp Pulse Resp BP Pulse Ox 37.1 C 84 22 H 173/78 H 95 11/25/18 15:42 11/25/18 18:19 11/25/18 15:42 11/25/18 15:42 11/25/18 15:42 O2 (L/minute) 2 FIO2 (%) 2 Constitutional: no apparent distress, appears nourished, not in pain Eyes: PERRL, anicteric sclera, EOMI Ears, Nose, Mouth, Throat: moist mucous membranes, hearing normal, ears appear normal, no oral mucosal ulcers Cardiovascular: regular rate and rhythym, no murmur, rub, or gallop, tachycardia Peripheral Pulses: 2+: dorsalis-pedis (R), dorsalis-pedis (L) Respiratory: no respiratory distress, no rales or rhonchi, clear to auscultation Gastrointestinal: normoactive bowel sounds, soft, non-tender abdomen, no palpable masses Genitourinary: no bladder fullness, no bladder tenderness Skin: warm, normal color, no rashes or abrasions, no fluctuance, no induration, No mottled Musculoskeletal: full muscle strength, no muscle tenderness, normal joint ROM, no joint effusions Neurologic: AAOx3, sensation intact bilaterally, CN II-XII Intact Psychiatric: interacting appropriately, not anxious, not encephalopathic, thought process linear Lymph, Heme, Immunologic: no cervical LAD, no supraclavicular LAD Lab Data & Imaging Review 11/23/18 12:18 11/25/18 17:53 WBC 6.00 10^3/uL (3.80-9.50) 11/23/18 12:18 RBC 3.63 10^6/uL (4.18-5.33) L 11/23/18 12:18 Hgb 10.9 g/dL (12.6-16.3) L 11/23/18 12:18 Hct 33.0 % (38.0-47.0) L 11/23/18 12:18 MCV 90.9 fL (81.5-99.8) 11/23/18 12:18 MCH 30.0 pg (27.9-34.1) 11/23/18 12:18 MCHC 33.0 g/dL (32.4-36.7) 11/23/18 12:18 RDW 12.2 % (11.5-15.2) 11/23/18 12:18 Plt Count 179 10^3/uL (150-400) 11/23/18 12:18 MPV 10.0 fL (8.7-11.7) 11/23/18 12:18 Neut % (Auto) 77.4 % (39.3-74.2) H 11/23/18 12:18 Lymph % (Auto) 11.0 % (15.0-45.0) L 11/23/18 12:18 Bracken % (Auto) 7.2 % (4.5-13.0) 11/23/18 12:18 Eos % (Auto) 3.8 % (0.6-7.6) 11/23/18 12:18 Baso % (Auto) 0.3 % (0.3-1.7) 11/23/18 12:18 Nucleat RBC Rel Count 0.0 % (0.0-0.2) 11/23/18 12:18 Absolute Neuts (auto) 4.64 10^3/uL (1.70-6.50) 11/23/18 12:18 Absolute Lymphs (auto) 0.66 10^3/uL (1.00-3.00) L 11/23/18 12:18 Absolute Monos (auto) 0.43 10^3/uL (0.30-0.80) 11/23/18 12:18 Absolute Eos (auto) 0.23 10^3/uL (0.03-0.40) 11/23/18 12:18 Absolute Basos (auto) 0.02 10^3/uL (0.02-0.10) 11/23/18 12:18 Absolute Nucleated RBC 0.00 10^3/uL (0-0.01) 11/23/18 12:18 Immature Gran % 0.3 % (0.0-1.1) 11/23/18 12:18 Immature Gran # 0.02 10^3/uL (0.00-0.10) 11/23/18 12:18 Sodium 136 mEq/L (135-145) 11/23/18 12:18 Potassium 3.1 mEq/L (3.5-5.2) L 11/25/18 17:53 Chloride 103 mEq/L (97-110) 11/23/18 12:18 Carbon Dioxide 28 mEq/l (22-31) 11/23/18 12:18 Anion Gap 5 mEq/L (6-14) L 11/23/18 12:18 BUN 9 mg/dL (7-23) 11/23/18 12:18 Creatinine 0.5 mg/dL (0.6-1.0) L 11/23/18 12:18 Estimated GFR > 60 11/23/18 12:18 Glucose 108 mg/dL (70-100) H 11/23/18 12:18 POC Glucose 100 mg/dL (70-100) 11/25/18 18:03 Calcium 8.3 mg/dL (8.5-10.4) L 11/23/18 12:18 Magnesium 1.8 mg/dL (1.6-2.3) 11/23/18 12:18 CK-MB (CK-2) Fraction 0.77 ng/mL (0.00-4.55) 11/25/18 17:53 Troponin I 0.022 ng/mL (0.000-0.034) 11/25/18 17:53 Patient ABO/Rh O POSITIVE 11/19/18 06:26 Antibody Screen NEGATIVE 11/19/18 06:26 Assessment & Plan Assessment: 67 y/o female s/p POD #6 extensive spinal surgery w/new onset of atrial fibrillation. Her vital signs are the following: BP 173/78, HR 84, Resp 22, 37.1c, Oxygen 95 % 2L NC #New onset of atrial fibrillation -Cards consulted; spoke to Dr. Troncoso who recommended Dilt PO ER 120 mg -First trop negative, cycle Q6H x 2 -Transfer to PCU and cont tele monitoring -[id number] score is 3, she is a candidate to begin blood thinners however considering her extensive spinal surgery, this would need to be considered w/ neurosurgery. Dr. Peña will reassess in AM for the possibility of initiating blood thinners. -Echo in AM -Checking WBC, no leukocytosis on 11/23 and she has remained afebrile however would like to r/o infection as origin to tachycardia #Hypokalemia -Magnesium 1.8 -Replete K; initiated K protocol; will receive 40 meq of K tonight #Spinal surgery -Cont orders as set forth by neurosurgery -Pain management PO/IVP PRN -PT/OT Diet: Regular Code: Full VTE ppx: Stockings, SCDs Dispo: Admit to inpatient <Janie Castillo - Last Filed: 11/25/18 20:47> History and Physical - History of Present Illness Review of Systems Review of Systems: Physical Exam Physical Exam: Temp Pulse Resp BP Pulse Ox 37.5 C 81 16 154/79 H 91 L 11/25/18 20:15 11/25/18 20:15 11/25/18 20:15 11/25/18 20:15 11/25/18 20:15 O2 (L/minute) 2 FIO2 (%) 2 Lab Data & Imaging Review 11/23/18 12:18 11/25/18 17:53 WBC 6.00 10^3/uL (3.80-9.50) 11/23/18 12:18 RBC 3.63 10^6/uL (4.18-5.33) L 11/23/18 12:18 Hgb 10.9 g/dL (12.6-16.3) L 11/23/18 12:18 Hct 33.0 % (38.0-47.0) L 11/23/18 12:18 MCV 90.9 fL (81.5-99.8) 11/23/18 12:18 MCH 30.0 pg (27.9-34.1) 11/23/18 12:18 MCHC 33.0 g/dL (32.4-36.7) 11/23/18 12:18 RDW 12.2 % (11.5-15.2) 11/23/18 12:18 Plt Count 179 10^3/uL (150-400) 11/23/18 12:18 MPV 10.0 fL (8.7-11.7) 11/23/18 12:18 Neut % (Auto) 77.4 % (39.3-74.2) H 11/23/18 12:18 Lymph % (Auto) 11.0 % (15.0-45.0) L 11/23/18 12:18 Bracken % (Auto) 7.2 % (4.5-13.0) 11/23/18 12:18 Eos % (Auto) 3.8 % (0.6-7.6) 11/23/18 12:18 Baso % (Auto) 0.3 % (0.3-1.7) 11/23/18 12:18 Nucleat RBC Rel Count 0.0 % (0.0-0.2) 11/23/18 12:18 Absolute Neuts (auto) 4.64 10^3/uL (1.70-6.50) 11/23/18 12:18 Absolute Lymphs (auto) 0.66 10^3/uL (1.00-3.00) L 11/23/18 12:18 Absolute Monos (auto) 0.43 10^3/uL (0.30-0.80) 11/23/18 12:18 Absolute Eos (auto) 0.23 10^3/uL (0.03-0.40) 11/23/18 12:18 Absolute Basos (auto) 0.02 10^3/uL (0.02-0.10) 11/23/18 12:18 Absolute Nucleated RBC 0.00 10^3/uL (0-0.01) 11/23/18 12:18 Immature Gran % 0.3 % (0.0-1.1) 11/23/18 12:18 Immature Gran # 0.02 10^3/uL (0.00-0.10) 11/23/18 12:18 Sodium 136 mEq/L (135-145) 11/23/18 12:18 Potassium 3.1 mEq/L (3.5-5.2) L 11/25/18 17:53 Chloride 103 mEq/L (97-110) 11/23/18 12:18 Carbon Dioxide 28 mEq/l (22-31) 11/23/18 12:18 Anion Gap 5 mEq/L (6-14) L 11/23/18 12:18 BUN 9 mg/dL (7-23) 11/23/18 12:18 Creatinine 0.5 mg/dL (0.6-1.0) L 11/23/18 12:18 Estimated GFR > 60 11/23/18 12:18 Glucose 108 mg/dL (70-100) H 11/23/18 12:18 POC Glucose 100 mg/dL (70-100) 11/25/18 18:03 Calcium 8.3 mg/dL (8.5-10.4) L 11/23/18 12:18 Magnesium 1.8 mg/dL (1.6-2.3) 11/23/18 12:18 CK-MB (CK-2) Fraction 0.77 ng/mL (0.00-4.55) 11/25/18 17:53 Troponin I 0.022 ng/mL (0.000-0.034) 11/25/18 17:53 Patient ABO/Rh O POSITIVE 11/19/18 06:26 Antibody Screen NEGATIVE 11/19/18 06:26 Assessment & Plan Assessment: Benign tumor of spinal meningioma (Acute)
[2018-11-25] MEDS: DILTIAZEM CD 120 MG CAP PO SCH (19:25)
[2018-11-25] MEDS ORDERED: POTASSIUM CL 10 MEQ TAB PO ONE (21:50)
--- NOTE | 2018-11-26 08:23 | NEUSURGPN ---
Date of Surgery: 11/19/18 Post Op Day: 7 Assessment/Plan: Assessment: 67 yo female POD #7 s/p removal of hardware T3-T6, extension of fusion T1-T8, resection of intradural tumor. Placement of lumbar drain Plan: -episode of Afib yesterday, Hospitalist consulted and we appreciate their management for this. -ok for Lovenox but would like to hold other anticoagulants for now due to recent extensive surgery -pain control, she is very sensitive to narcotics-taking Tylenol -thoracic xrays show stable hardware placement -PT/OT -No BM yet-continue bowel protocol-passing gas -Patient may discharge home once cleared by Medicine and has a BM -d/w Dr Peña -call with any questions or concerns Subjective: Doing well, denies any present issues Objective: AxOx4 MAEx4 5/ BLE Dressing/Incision CDI Neuro Check Frequency: per routine Urinary Catheter in Place: No Catheter Insertion Date: 11/19/18 - Physician Discussed Patient with Dr.: Peña Neurosurgery Physical Exam - Vitals, I&O, Labs I and O 11/25/18 11/26/18 11/27/18 05:59 05:59 05:59 Intake Total 800 1500 Output Total 3300 2200 Balance -2500 -700 Intake: Oral (ml) 800 1500 Output: Urine (ml) 3300 2200 Bedside Commode 3300 2200 Other: Number of Voids Bedside Commode 1 2 Number of Emesis 3 Occurrences Vital Signs Temp Pulse Resp BP Pulse Ox 36.6 C 65 18 164/74 H 95 11/26/18 07:07 11/26/18 07:07 11/26/18 07:07 11/26/18 07:07 11/26/18 07:07 Laboratory Results 11/25/18 21:10 11/26/18 03:18 ICD10 Worksheet Patient Problems: Problems Problem Status Onset Benign tumor of spinal meningioma Acute
[2018-11-26] MEDS: FAMOTIDINE 20 MG TAB PO SCH (08:40)
[2018-11-26] MEDS: FERROUS SULFATE 325 MG TAB PO SCH (08:41)
[2018-11-26] MEDS: DILTIAZEM CD 120 MG CAP PO SCH (08:41)
[2018-11-26] MEDS: ACETAMINOPHEN 500 MG TAB PO SCH ×2 (08:41→12:38)
[2018-11-26] MEDS: CHOLECALCIFEROL VIT D3 1,000 UNITS TAB PO SCH (08:41)
[2018-11-26] MEDS: SENNOSIDES/DOCUSATE SODIUM TAB PO SCH (08:41)
[2018-11-26] MEDS: MULTIVITAMINS 1 EACH TAB PO SCH (08:41)
[2018-11-26] MEDS: TIOTROPIUM INHALER 18 MCG/DOSE 5 DOSE/MDI IH SCH (09:04)
--- NOTE | 2018-11-26 12:39 | HOSPPROG ---
Hospitalist Progress Note Assessment/Plan: 67 yo F w postop AF AF; low chadsvasc- point for age and female back sinus continue dilt 120 daily outpt cardiology follow up no AC for now- per neurosurgery constipation: awaiting BM bowel regimen as you are htn: outpt follow up proph: lmwh dispo: OK for dc per IM Subjective: tele: maybe 10 seconds AF overnight (interp by me). case d/w neurosurgery PA Objective: Vital Signs Temp Pulse Resp BP Pulse Ox 37.1 C 69 18 150/78 H 94 11/26/18 11:03 11/26/18 11:03 11/26/18 11:03 11/26/18 11:03 11/26/18 11:03 Laboratory Results 11/25/18 21:10 11/26/18 03:18 11/25/18 11/26/18 11/27/18 05:59 05:59 05:59 Intake Total 800 1500 Output Total 3300 2200 Balance -2500 -700 - Physical Exam Constitutional: no apparent distress, appears nourished Eyes: PERRL, anicteric sclera Ears, Nose, Mouth, Throat: moist mucous membranes, hearing normal Cardiovascular: regular rate and rhythym, no murmur, rub, or gallop, No systolic murmur Respiratory: no respiratory distress, no rales or rhonchi Gastrointestinal: normoactive bowel sounds, soft, non-tender abdomen Genitourinary: No pond in urethra Skin: warm, normal color Musculoskeletal: full muscle strength Neurologic: AAOx3 ICD10 Worksheet Patient Problems: Problems Problem Status Onset Benign tumor of spinal meningioma Acute
[2018-11-26 15:21] VITALS: BP 151/76
--- NOTE | 2018-11-26 16:22 | PDHOMEO2F ---
Home Oxygen Face to Face Home Orders: I certify that a physician or a nurse practitioner or physician's server assistant has had a [id number] encounter with this patient on the date of this order due to the diagnosis listed, which relates to the primary reason the patient requires home oxygen. Alternative treatments have been tried, or considered, and deemed ineffective. It is anticipated that supplemental oxygen will result in improvement with treatment. Home oxygen qualifying diagnosis: Hypoxia SpO2 on room air (%): 84% Frequency of home oxygen needed: continuous Home oxygen liters per minute: 2L Home oxygen delivery device: nasal cannula Concentrator: Yes E-tanks for mobility and back up: Yes If ordering portable O2, is the patient mobile in the home?: Yes I certify that, based on these findings, the home oxygen is medically necessary for this patient for the following length of time. Length of time home oxygen needed: 1 month (Patient will follow up with PCP to wean off Oxygen)
--- NOTE | 2018-11-26 16:45 | ASMTLACE ---
LACE Length of stay for Answers: 7-13 days current admission Acuity / Level of Answers: Yes Care: Did the patient have an inpatient admission? Comorbidities - select Answers: Any tumor (including all that apply lymphoma or leukemia) Opioid dependence / Chronic pain # of Emergency department Answers: 0 visits in the last 6 months Score: 14 Date Signed: 11/26/2018 04:44 PM Electronically Signed By:Libby Pryor RN
--- NOTE | 2018-11-26 17:05 | ASMTCMCOM ---
CM Note CM Note Notes: Pt discharging with home O2 and [facility]. Mandy at [facility] notified, RN to call report. DC Plan: Home care/ [facility]( RN/PT) Date Signed: 11/26/2018 05:05 PM Electronically Signed By:Libby Pryor RN
--- NOTE | 2018-11-26 17:08 | PDIAF ---
- Diagnosis Diagnosis: S/P thoracic tumor ressection/fusion Code Status: Full Code - Medication Management Discharge Medications: electronically signed and located in the Home Medication List. PICC Care - Routine: N/A - Orders Services needed: Home Care, Registered Nurse, Physical Therapy Home Care Face to Face: I certify that this patient was under my care and that I had the required [id number] encounter meeting the encounter requirements on the discharge day. My findings support the fact that the patient is homebound as defined in Home Care Face to Face Continued: CMS Chapter 7 Medicare Benefits Manual 30.1.1 , The condition of the patient is such that there exists a normal inability to leave home and consequently, leaving home would require a considerable and taxing effort. Isolation Type: None Diet Recommendation: no restrictions on diet Diet Texture: Regular Texture Diet Additional Instructions: No NSAIDS for 6 months following any fusion procedure. - Follow Up Care Current Providers and Referrals: Esvin Peña MD [Medical Doctor] - follow up as scheduled AMAYA BANSAL [Primary Care Provider] -
--- NOTE | 2018-11-26 17:09 | ASDISCHSUM ---
Discharge Information Plan Status:Home with Home Health Medically Cleared to Leave: Discharge Date: D/C Disposition:Home Health Service [facility] D/C Disposition:Home, Routine, Self-Care Projected Discharge Date:11/26/2018 11:00 AM Transportation at D/C:Family Discharge Delay Reason: Follow-Up Date:11/26/2018 11:00 AM Discharge Slot: Final Diagnosis: Placement Information [facility]erral Type:[facility] Referral ID:[id number] Provider Name: Address 1: Phone Number: Address 2: Fax Number: City: Selection Factors: State: Referral Type:*Home Health Care Services Referral ID:[id number] Provider Name:[facility] Address 1:[address] [address] Address 2: City:[place] Selection Factors: State:[place] Patient Contact Information Contact Name:DEBO Relationship: Address:[address] Work Phone: City:[place] Phone: State/Zip Code:[place] [address] Email: Financial Information Financial Class:Medicare Primary Plan Desc:MEDICARE INPATIENT Primary Plan Number:[id number] Secondary Plan Desc:[employer]AL [employer]AN Secondary Plan Number:[id number] Assessment Information LACE LACE Length of stay for Answers: 7-13 days current admission Acuity / Level of Answers: Yes Care: Did the patient have an inpatient admission? Comorbidities - select Answers: Any tumor (including all that apply lymphoma or leukemia) Opioid dependence / Chronic pain # of Emergency department Answers: 0 visits in the last 6 months Score: 14 Date Signed: 11/26/2018 04:44 PM Electronically Signed By:Libby Pryor RN [facility] CM Assessment Living Arrangements What is your living Answers: With Spouse arrangement? Who do you live with? Type Of Residence What kind of residence do Answers: House you live in? Discharge Plan Comments Coordination Status Comments Notes: Patient is a 67yo female who presents for surgery due to a reoccurrence of a tumor. Patient going to surgery today for redo resection of intradural thoracic tumor, extension of fusion T1-T8. PT/OT evals ordered for the patient. D/C plan TBD. CM will follow. Date Signed: 11/20/2018 01:51 PM Electronically Signed By:Myrna Jay LCSW [facility] CM Progress Note CM Note CM Note Notes: Pt had spinal tumor resection and fusion on 11/19/18 and has worked with therapies who are recommending [facility]. Surgeon will need to place order for [facility] eval. CM left message for [facility] intake. CM to follow. D/C plan: [facility] pending eval Date Signed: 11/22/2018 02:04 PM Electronically Signed By:Aislinn Rodriguez [facility] CM Progress Note CM Note CM Note Notes: Spoke with pt and who are interested in [facility]'s inpt rehab. CM spoke with [facility] Inpt rehab who are willing to accept pt if she is ready in the next few day. Pt and her are very interested in keeping pt here at [facility] and don't want to consider other options at this time. CM to follow. Plan: [facility] Inpatient Rehab Once medically ready. Date Signed: 11/23/2018 11:59 AM Electronically Signed By:ELIZABETH Gao [facility] CM Progress Note CM Note CM Note Notes: Pt no longer meets criteria for [facility] inpatient rehab. Pt and Pe Ell are not disapointed, they are very encouraged by pt progress and feel safe with d/c home with [facility]. [facility] can accept pt for PT/OT. Pt will d/c to her home, address/phone verified. Pt has a lot of family support. D/c plan of care: Home with [facility] OT/PT Date Signed: 11/25/2018 02:51 PM Electronically Signed By:KRISTOPHER Lyon [facility] CM Progress Note CM Note CM Note Notes: Pt discharging with home O2 and [facility]. Mandy at [facility] notified, RN to call report. DC Plan: Home care/ [facility]( RN/PT) Date Signed: 11/26/2018 05:05 PM Electronically Signed By:Libby Pryor RN Intervention Information
--- NOTE | 2018-11-26 18:03 | ECHO ---
[email or web address] [address] [address] Main: [phone] Echocardiography Examination Transthoracic Name: AYANA RANDOLPH MR#: [id number] Study Date: 11/26/2018 Study Time: 11:27 AM Date of : 1950 Age: 67 year(s) Height: 172.7 cm (68 in.) Weight: 80.29 kg (177 lb.) BSA: 1.94 m2 Gender: Female Examination: Echo Contrast: Image Quality: Adequate Rhythm: Heart Rate: BP: 150 mmHg/78 mmHg Indication: new onset of a fib Procedure Staff Referring Physician: Automotive Machinist Apprentice: Carina Estrella [facility] Reading Physician: Mary Ramos MD Requesting Provider: Ordering Physician: Mirna España Indication: new onset of a fib Measurements Chambers AV/MV Label Value Normal Value Label Value Normal Value LVOTd 2 cm (1.8cm - 2cm) AV PGmax 9 mmHg LVOT VTI 27.2 cm (18cm - 22cm) AV PGmean 5 mmHg LVDd, 2D 4.4 cm (3.9cm - 5.3cm) AV Vmax 1.46 m/s LVDs, 2D 2.9 cm (2.1cm - 4cm) MARBIN (VTI) 2.6 cm2 IVSd, 2D 1.1 cm (0.6cm - 1.1cm) MV E Vmax 0.71 m/s LVPWd, 2D 1 cm MV A Vmax 0.73 m/s LVEF, BP 63 % (55% - 70%) MV E/A 0.97 LVEF, 2D 62 % (54% - 74%) MV E/E' lateral 6.7 LVOT PGmean 4 mmHg MV E/E' septal 6.8 (0.45 - 1.25) LVOT Vmean 0.91 m/s MV DT 239 ms RVDd, 2D 3.7 cm (1.9cm - 3.8cm) MV E' septal 0.1 m/s LA Volume, BP 67 ml (22ml - 52ml) MV PHT 0.08 s LADs, 2D 3.7 cm (2.7cm - 3.8cm) MVA PHT 2.9 cm2 LAESV index, BP 34.5 ml/m2 MV E' lateral 0.11 m/s RA Area 19.3 cm2 MV E/E' mean 6.76 Additional Vessels MV PHT 75 ms Label Value Normal Value MV E' mean 0.1 m/s AoAsc 2.9 cm TV/PV AoRoot, 2D 2.6 cm (1.4cm - 2.6cm) Label Value Normal Value Patient: AYANA RANDOLPH Study Date: 11/26/2018 Page 1 of 3 11:27 AM IVC 1.8 cm (1.2cm - 2.3cm) RA Pressure 5 mmHg RVSP 34 mmHg TR Pmax 29 mmHg TR Vmax 2.69 m/s PV PGmax 3 mmHg PV Vmax, Caliper 0.91 m/s (0.6m/s - 0.9m/s) Conclusions 1. The left ventricle is normal in size systolic function. Ejection fraction is 63%. No regional wall motion abnormalities. 2. The right ventricle is normal in size systolic function. 3. Bordeline biatrial dilation. 4. mild tricuspid regurgitation with normal estimated PA systolic pressure. 5. Mild mitral regurgitation. 6. No prior echo Findings Left Ventricle: Left ventricle is normal in size. Normal global systolic left ventricular function. The ejection fraction, measured by Simpsons method, is 63 %. EF range is estimated at 60 % - 65 %. Left ventricle wall thickness is normal. There are no regional wall motion abnormalities. Left ventricular diastolic function parameters are normal. No LV hypertrophy. Right Ventricle: Normal size right ventricle. Right ventricular systolic function is normal. Left Atrium: The left atirum is borderline dilated. Right Atrium: The right atrium is borderline dilated. Mitral Valve: Mitral valve appears structurally normal. Mild mitral regurgitation. No mitral valve stenosis. Aortic Valve: Aortic leaflets are structurally normal. Trivial aortic regurgitation is present. There is no aortic stenosis. Tricuspid Valve: Tricuspid valve leaflets are structurally normal. Mild tricuspid regurgitation. No tricuspid valve stenosis. Right Ventricular systolic pressure is measured at 34 mmHg. Pulmonary artery pressure normal. Pulmonic Valve: Pulmonic leaflets are structurally normal. Mild pulmonic valve regurgitation is present. Aorta: The aortic root size in 2D measures 2.6 cm. The ascending aorta measures 2.9 cm. Aorta Measurements AoRoot, 2D is 2.6 cm. IVC: The inferior vena cava is normal in size. Pericardium: No pericardial effusion. Exam Details Procedure Ordered: Echo Procedure Status: Routine study Image Quality: Adequate Facility Location: Cardiac Echo 1 Patient: AYANA RANDOLPH Study Date: 11/26/2018 Page 2 of 3 11:27 AM (No Signature Object) Patient: AYANA RANDOLPH Study Date: 11/26/2018 Page 3 of 3 11:27 AM [id number]
[2018-11-28] MEDS ORDERED: PATCH REMOVAL 1 EA PATCH TD SCH (07:50)
--- NOTE | 2018-11-30 15:27 | CPEKG ---
Test Reason : OPEN Blood Pressure : / mmHG Vent. Rate : 084 BPM Atrial Rate : 083 BPM P-R Int : 149 ms QRS Dur : 088 ms QT Int : 359 ms P-R-T Axes : 069 -11 022 degrees QTc Int : 425 ms Sinus rhythm Minimal ST depression, anterolateral leads Confirmed by Flex Troncoso ([id number]) on 11/30/2018 3:27:20 PM Referred By: Esvin Peña Confirmed By:Flex Troncoso
--- NOTE | 2018-12-09 18:35 | GDS ---
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 HISTORY OF PRESENT ILLNESS: This is a 67-year-old female who has a history of previous resection of primarily right-sided dural-based mass 4 or 5 years ago. The pathology at this time apparently retur angel this as a meningioma, but her operating physician told her that they felt this was a schwannoma. She has been followed somewhat since that time and at the time of surgery, underwent a T3-T6 instrum ented fusion. In her followup, she was found to have tumor recurrence and some growth. There was di splacement of the cord toward the left side, although she was not symptomatic with overt cord vu victorino. This case was presented at our multidisciplinary tumor board conference and ultimately it was d ecided that she should undergo resection to establish the final pathology and decompress the spinal c ord. She presented electively on the day of her admission for this procedure. HOSPITAL COURSE: The patient arrived electively on 11/19/2018, where she underwent a removal of existi ng spinal hardware, T3-T6, and placement of pedicle screws in T1 through T8, as well as a redo resect ion of dural-based extramedullary tumor with resection of the dura. She tolerated this procedure wel l and there were no complications. She was then transferred to the PACU, where she continued to shabana rose until she met criteria to be transferred to the intensive care unit. There, she was closely enrique tored. Her lumbar drain was closely monitored and this stayed in for several days to ensure there wa s no spinal fluid leak. She remained neurologically intact without any deficits. Once her drain was clamped and they were sure there was no leak from her incision, the lumbar drain was removed. She t hen advanced her therapies. She did have some problems with some orthostatic hypotension and this wa s treated with fluids, as well as other blood pressure medications. She ultimately did well and was transferred to the floor. There, she continued to work with therapies. She was also seen by the danitza tyelr service for her orthostatic hypotension, who recommended some outpatient cardiology followup. She ultimately was deemed fit and stable for discharge home with home health care and has some home o xygen on 11/26/2018. DISCHARGE MEDICATIONS: Please see the discharge medication reconciliation report. FOLLOWUP CARE: Patient is to follow up with Dr. Peña in approximately 2-3 weeks. She is to do no b ending, lifting, twisting more than 5 or 10 pounds. She is to monitor her incision for any signs of infection or spinal fluid leak, including any clear fluid draining from her incision, any drainage, p us-like drainage, or fever or chills. She is to call with any questions or concerns or any new or wo rsening symptoms. Any onset of worsening newer onset weakness, loss of bowel or bladder control, she is to go to the emergency room. /[id number]/MODL
== END 2018-11-26 18:19 | disposition home health service (06) | DRG 30 ==
LOC: F3N 05:41 → F2N 15:38 → F3N 11-24 10:43 → F2W 11-25 20:10
PROVIDERS: ADMIT Neurological Surgery; ATTEND Neurological Surgery
PROC: 00UT0KZ Supplement Spinal Meninges with Nonautologous Tissue Substitute, Open Approach (ICD-10-PCS; principal; 2018-11-19 07:15)
PROC: 0RG70AJ Fusion of 2 to 7 Thoracic Vertebral Joints with Interbody Fusion Device, Posterior Approach, Anterior Column, Open Approach (ICD-10-PCS; principal; 2018-11-19 07:15)
PROC: 0PP404Z Removal of Internal Fixation Device from Thoracic Vertebra, Open Approach (ICD-10-PCS; principal; 2018-11-19 07:15)
PROC: 00BT0ZZ Excision of Spinal Meninges, Open Approach (ICD-10-PCS; principal; 2018-11-19 07:15)
PROC: 3E0U0GB Introduction of Recombinant Bone Morphogenetic Protein into Joints, Open Approach (ICD-10-PCS; principal; 2018-11-19 07:15)
DX: D32.1 Benign neoplasm of spinal meninges (principal); M40.204 Unspecified kyphosis, thoracic region; I95.81 Postprocedural hypotension; I48.91 Unspecified atrial fibrillation; Z98.1 Arthrodesis status; J45.909 Unspecified asthma, uncomplicated; Z87.891 Personal history of nicotine dependence
CPT/HCPCS: 97116-GP; 97162-GP; 97166-GO; 97530-GO; 97530-GP; 97535-GO; C1713; C1762; C1763; J0360; J1100; J1170; J1200; J1580; J1650; J2001; J2212; J2250; J2270; J2405; J2550; J2704; J2765; J3370; P9041

== ENCOUNTER → 2018-12-28 | Outpatient (CLI) | payer OTHER, BC | LOC: EMCIMAGING 10:30 ==